=== PATIENT | male | born 1950 | race African-American/Black ===

== ENCOUNTER 2020-11-16 13:17 | Emergency (ER) | payer OTHER ==
[~2020-11-16] VITALS: Ht 190.5 cm; Wt 91.0 kg
[2020-11-16 15:00] LABS: BASOPHILS % 0.9 % (0.0-2.0); EOSINOPHILS % 4.5 % (0.0-5.0); HEMATOCRIT. 39.5 % (42.0-52.0); HEMOGLOBIN. 12.7 g/dL (14.0-18.0); LYMPHOCYTES % 13.8 % (20.0-50.0); MEAN CORPUSCULAR VOLUME 90.3 fL (80.0-94.0); MEAN PLATELET VOLUME 10.2 fl (7.4-10.4); MONOCYTES % 9.3 % (2.0-8.0); NEUTROPHILS % 71.5 % (40.0-76.0); PLATELET 192 x1000/uL (130-400); RED BLOOD CELL COUNT 4.38 mill/uL (4.7-6.1); RED CELL DISTRIBUTION WIDTH 16.7 % (11.6-14.6)
[2020-11-16 15:07] LABS: CHLORIDE 109 mEq/L (98-107)
[2020-11-16] MEDS ORDERED: SODIUM CHLORIDE 0.9% 1,000 ML IV ONE (17:00)
[2020-11-16 19:03] LABS: CLARITY URINE CLEAR (CLEAR); COLOR URINE YELLOW (YELLOW); KETONES URINE TRACE (NEGATIVE); LEUKOCYTE ESTERASE URINE TRACE (NEGATIVE); NITRITE URINE NEGATIVE (NEGATIVE); OCCULT BLOOD URINE NEGATIVE (NEGATIVE); PROTEIN URINE TRACE (NEGATIVE); SPECIFIC GRAVITY URINE 1.015 (1.005-1.030)
[2020-11-16 19:06] VITALS: BP 111/58
== END 2020-11-16 19:48 | disposition home or self-care (01) ==
LOC: ER 13:50
DX: R00.2 Palpitations (principal); I10 Essential (primary) hypertension; F17.290 Nicotine dependence, other tobacco product, uncomplicated; E86.0 Dehydration; N28.9 Disorder of kidney and ureter, unspecified
CPT/HCPCS: 36415; 70450; 71045; 80053; 81003; 83880; 84484; 85025; 93005; 96360; 99285; J7030

== ENCOUNTER 2025-02-02 11:08 | Inpatient (IN) | payer MEDICARE, OTHER ==
[~2025-02-02] VITALS: Ht 188 cm; Wt 109.5 kg
[2025-02-02] VITALS (46 sets, daily range): BP systolic 76–192; BP diastolic 61–149; PULSE 48–99; RESP 11–23; TEMP 36.4736; O2SAT 40–100
[2025-02-02] MEDS ORDERED: NOREPINEPHRINE 8MG/250ML PMX 250 ML IV ONE (11:20)
[2025-02-02] MEDS: NOREPINEPHRINE 8MG/250ML PMX 250 ML IV SCH (11:29)
[2025-02-02] MEDS ORDERED: FENTANYL 2500MCG/250ML PMX 250 ML IV SCH (11:30)
[2025-02-02] MEDS ORDERED: FENTANYL 2500MCG/250ML PMX 250 ML IV PRN (11:30)
[2025-02-02] MEDS: SODIUM CHLORIDE 0.9% 1,000 ML IV ONE (11:48)
[2025-02-02] MEDS: PROPOFOL 10MG/ML 100ML 100 ML IV SCH (11:48)
[2025-02-02 11:51] LABS: BASOPHILS % 0.6 % (0.0-2.0); EOSINOPHILS % 3.6 % (0.0-5.0); HEMATOCRIT. 35.0 % (42.0-52.0); HEMOGLOBIN. 10.7 g/dL (14.0-18.0); LYMPHOCYTES % 55.6 % (20.0-50.0); MEAN PLATELET VOLUME 11.4 fl (7.4-10.4); MONOCYTES % 5.3 % (2.0-8.0); NEUTROPHILS % 34.9 % (40.0-76.0); PLATELET 126 x1000/uL (130-400); RED BLOOD CELL COUNT 3.60 mill/uL (4.7-6.1); RED CELL DISTRIBUTION WIDTH 14.3 % (11.6-14.6)
[2025-02-02 11:54] LABS: BG BASE EXCESS -12.3 mmol/L (-2.0-3.0); BG CARBOXYHEMOGLOBIN 2.1 % (0.5-1.5); BG DEOXYHEMOGLOBIN 0.3 % (0.0-5.0); BG FRACTION INSPIRED OXYGEN 100; BG HCO3 ACT 14.5 mmol/L (21.0-28.0); BG METHEMOGLOBIN 0.4 % (0.5-1.5); BG OXYGEN SATURATION 99.7 % (94.0-98.0); BG OXYHEMOGLOBIN 97.2 % (94.0-98.0); BG PCO2 36.3 mmHg (35.0-48.0); BG PEEP (cmH2O) 5.0 cmH2O; BG PH 7.219 (7.350-7.450); BG PO2 490.4 mmHg (83.0-108.0); BG SAMPLE SITE LEFT RADIAL; BG TIDAL VOLUME(mL) 550.0 mL; BG TOTAL HEMOGLOBIN 11.8 g/dL (13.5-17.5); BG TOTAL RESPIRATORY RATE 21 b/min; BG VENT MODE VENT - AC; BG VENT RATE 20.0 set
[2025-02-02 12:09] LABS: UREA NITROGEN BLOOD 14 mg/dL (9-23)
[2025-02-02 12:10] LABS: CREATININE 1.7 mg/dL (0.6-1.3)
[2025-02-02 12:11] LABS: ASPARTATE AMINOTRANSFERASE 20 IU/L (<34)
[2025-02-02 12:12] LABS: BILIRUBIN DIRECT 0.3 mg/dL (<=3.0)
[2025-02-02 12:13] LABS: BILIRUBIN TOTAL 0.8 mg/dL (0.1-1.0); PROTEIN TOTAL 5.9 g/dL (6.0-8.3)
[2025-02-02 12:22] LABS: INR 1.1
[2025-02-02 12:38] LABS: TROPONIN I HIGH SENSITIVITY 56 ng/L (3.0-53)
[2025-02-02] MEDS: VANCOMYCIN 1G PREMIX 200 ML IV ONE (12:56)
[2025-02-02] MEDS: PIPERACILLIN/TAZO 3.375G/50ML 50 ML IV ONE (12:56)
[2025-02-02] MEDS ORDERED: ACETAMINOPHEN 325MG TABLET PO PRN (13:30)
[2025-02-02] MEDS ORDERED: GUAIFENESIN 200MG/10ML SUGAR FREE UDC PO PRN (13:30)
[2025-02-02] MEDS ORDERED: LORAZEPAM 0.5MG TABLET PO PRN (13:30)
[2025-02-02] MEDS: KCL 10MEQ/50ML PREMIX 50 ML IV ONE (13:30)
[2025-02-02] MEDS ORDERED: VANCOMYCIN 1.5GM/250ML 250 ML IV SCH (14:00)
[2025-02-02 14:27] LABS: TROPONIN I HIGH SENSITIVITY 777 ng/L (3.0-53)
[2025-02-02 14:33] LABS: INFLUENZA TYPE A Presumptive Negative (Pres. Neg.)
[2025-02-02 14:34] LABS: INFLUENZA TYPE B Presumptive Negative (Pres. Neg.); RESPIRATORY SYNCYTIAL VIRUS Not Detected (Not Detectd)
[2025-02-02] MEDS ORDERED: DEXTROSE 50% WATER 50ML SYRINGE IV PRN (14:45)
[2025-02-02 15:48] LABS: TRIGLYCERIDE 142.0 mg/dL (0-150)
[2025-02-02 15:49] LABS: LDL CHOLESTEROL 108.0 mg/dL (5-100)
[2025-02-02] MEDS ORDERED: HEPARIN 25,000 UNITS in DEXT 5% WATER 245 ML IV SCH (16:15)
[2025-02-02] MEDS: BLOOD SUGAR DIAGNOSTIC STRIP TEST SCH (16:30)
[2025-02-02 17:15] LABS: BG BASE EXCESS -5.6 mmol/L (-2.0-3.0); BG CARBOXYHEMOGLOBIN 1.7 % (0.5-1.5); BG DEOXYHEMOGLOBIN 1.1 % (0.0-5.0); BG FRACTION INSPIRED OXYGEN 40; BG HCO3 ACT 19.0 mmol/L (21.0-28.0); BG METHEMOGLOBIN 0.1 % (0.5-1.5); BG OXYGEN SATURATION 98.9 % (94.0-98.0); BG OXYHEMOGLOBIN 97.1 % (94.0-98.0); BG PCO2 34.8 mmHg (35.0-48.0); BG PEEP (cmH2O) 5.0 cmH2O; BG PH 7.355 (7.350-7.450); BG PO2 135.9 mmHg (83.0-108.0); BG SAMPLE SITE RIGHT RADIAL; BG TIDAL VOLUME(mL) 550.0 mL; BG TOTAL HEMOGLOBIN 14.8 g/dL (13.5-17.5); BG VENT MODE VENT - AC; BG VENT RATE 20.0 set
[2025-02-02] MEDS: SODIUM BICARBONATE 8.4% 50MEQ/50ML SYR IV SCH (17:15)
[2025-02-02] MEDS: PIPERACILLIN/TAZO 3.375G/50ML 50 ML IV SCH (17:15)
[2025-02-02] MEDS: HEPARIN 60 UNITS/KG BOLUS IV SCH (17:16)
[2025-02-02] MEDS: DEXT 5%/0.9% NACL 1,000 ML IV SCH (17:19)
[2025-02-02] MEDS: INSULIN LISPRO 100 UNITS/ML SUBCUT SCH (17:46)
[2025-02-02] MEDS: HEPARIN 25,000 UNITS PREMIX 250 ML IV SCH (18:10)
[2025-02-02] MEDS: KCL 20MEQ/100ML PREMIX 100 ML IV NR (18:34)
[2025-02-02] MEDS ORDERED: ATOR40TA70 PO (19:37)
[2025-02-02] MEDS ORDERED: GABA-1180 PO (19:37)
[2025-02-02] MEDS ORDERED: DABI150C PO (19:37)
[2025-02-02] MEDS ORDERED: FURO20TA4 PO (19:37)
[2025-02-02] MEDS ORDERED: BISO5TAB13 PO (19:37)
[2025-02-02] MEDS ORDERED: LISI20TA31 PO (19:37)
[2025-02-02 21:21] LABS: UREA NITROGEN BLOOD 21.0 mg/dL (9-23)
[2025-02-02 21:29] LABS: CREATININE 2.3 mg/dL (0.6-1.3)
[2025-02-02] MEDS: PANTOPRAZOLE SODIUM 40 MG/VIAL IV SCH (21:29)
[2025-02-02] MEDS: ACETAMINOPHEN 650MG SUPP PR PRN (21:29)
[2025-02-02] MEDS: HYDRALAZINE 20MG/ML VIAL IV PRN (22:58)
[2025-02-02] MEDS ORDERED: HEPARIN BOLUS PRN aPTT <30 IV (23:00)
[2025-02-02] MEDS: HEPARIN BOLUS PRN aPTT 30-44 IV (23:52)
[2025-02-03] VITALS (105 sets, daily range): BP systolic 88–171; BP diastolic 63–130; PULSE 63–114; RESP 17–32; TEMP 99.4–100.6; O2SAT 95–100
[2025-02-03] MEDS: ACETAMINOPHEN 650MG/20.3ML UDC NG PRN (03:58)
[2025-02-03 07:17] LABS: HEMATOCRIT. 44.2 % (42.0-52.0); HEMOGLOBIN. 14.3 g/dL (14.0-18.0); MEAN PLATELET VOLUME 10.6 fl (7.4-10.4); PLATELET 173 x1000/uL (130-400); RED BLOOD CELL COUNT 4.74 mill/uL (4.7-6.1); RED CELL DISTRIBUTION WIDTH 14.8 % (11.6-14.6)
[2025-02-03 08:20] LABS: CREATININE 2.9 mg/dL (0.6-1.3); UREA NITROGEN BLOOD 26.0 mg/dL (9-23)
[2025-02-03 09:22] LABS: BG BASE EXCESS -6.2 mmol/L (-2.0-3.0); BG CARBOXYHEMOGLOBIN 1.2 % (0.5-1.5); BG DEOXYHEMOGLOBIN 1.4 % (0.0-5.0); BG FRACTION INSPIRED OXYGEN 60; BG HCO3 ACT 17.1 mmol/L (21.0-28.0); BG METHEMOGLOBIN 0.1 % (0.5-1.5); BG OXYGEN SATURATION 98.6 % (94.0-98.0); BG OXYHEMOGLOBIN 97.3 % (94.0-98.0); BG PCO2 28.7 mmHg (35.0-48.0); BG PEEP (cmH2O) 5.0 cmH2O; BG PH 7.393 (7.350-7.450); BG PO2 110.5 mmHg (83.0-108.0); BG SAMPLE SITE LEFT RADIAL; BG TIDAL VOLUME(mL) 550.0 mL; BG TOTAL HEMOGLOBIN 15.3 g/dL (13.5-17.5); BG VENT MODE VENT - AC; BG VENT RATE 22.0 set
[2025-02-03 11:04] LABS: BAND% 15.0 % (1.0-6.0); LYMPHOCYTES % MANUAL 7.0 % (20.0-50.0); MONOCYTES % MANUAL 11.0 % (2.0-8.0); NEUTROPHILS % MANUAL 67.0 % (45.0-75.0); PLATELET ESTIMATE NORMAL
[2025-02-03 11:07] LABS: CLARITY URINE TURBID (CLEAR); COLOR URINE DARK YELLOW (YELLOW); GLUCOSE URINE TRACE (NEGATIVE); KETONES URINE TRACE (NEGATIVE); LEUKOCYTE ESTERASE URINE TRACE (NEGATIVE); NITRITE URINE NEGATIVE (NEGATIVE); OCCULT BLOOD URINE 1+ (NEGATIVE); PH URINE 5.0 (4.5-8.0); PROTEIN URINE 2+ (NEGATIVE); SPECIFIC GRAVITY URINE 1.022 (1.005-1.030); UROBILINOGEN URINE 1.0 E.U./dL (0.2-1.0)
[2025-02-03 11:44] LABS: AMORPHOUS SEDIMENT URINE 1+ /lpf; SQUAMOUS EPITHELIAL CELL URINE RARE /lpf (RARE/1+)
[2025-02-03 11:45] LABS: BACTERIA URINE 3+; RBC URINE 0-2 /hpf (0-2)
[2025-02-03 11:46] LABS: WBC URINE 0-2 /hpf (0-2)
[2025-02-03 11:53] LABS: *AMPHETAMINES SCREEN URINE NEGATIVE (NEGATIVE); *BARBITURATES SCREEN URINE NEGATIVE (NEGATIVE); *BENZODIAZEPINES SCREEN URINE NEGATIVE (NEGATIVE); *COCAINE SCREEN URINE NEGATIVE (NEGATIVE); METHADONE URINE SCREEN NEGATIVE (NEGATIVE); OPIATES URINE SCREEN NEGATIVE (NEGATIVE); PHENCYCLIDINE URINE SCREEN NEGATIVE (NEGATIVE)
[2025-02-03 11:54] LABS: CANNABINOID URINE SCREEN NEGATIVE (NEGATIVE); ECSTASY MDMA SCREEN URINE NEGATIVE (NEGATIVE)
[2025-02-03] MEDS: ONDANSETRON HCL 4MG/2ML INJ IV PRN (14:55)
[2025-02-03] MEDS ORDERED: SODIUM CHLORIDE 0.9% 500 ML IV SCH (16:10)
[2025-02-03] MEDS: SODIUM CHLORIDE 0.9% 1,000 ML IV SCH (16:18)
[2025-02-03] MEDS ORDERED: NOREPINEPHRINE 8 MG in DEXT 5% WATER 242 ML IV PRN (16:30)
[2025-02-03] MEDS ORDERED: NOREPINEPHRINE 32 MG in DEXTROSE 5% WATER 250 ML IV PRN (16:45)
[2025-02-03 16:48] LABS: SODIUM URINE RANDOM 34.0 mEq/L
[2025-02-03 16:55] LABS: CREATININE URINE RANDOM 139.0 mg/dL; UREA NITROGEN URINE RANDOM 199.0 mg/dL
[2025-02-03] MEDS: AMIODARONE 150MG/100ML D5W 100 ML IV SCH (16:58)
[2025-02-03] MEDS ORDERED: VASOPRESSIN 20 UNIT in SODIUM CHLORIDE 0.9% 99 ML IV PRN (17:00)
[2025-02-03] MEDS: AMIODARONE HCL 900 MG in DEXT 5% WATER 482 ML IV SCH (17:02)
[2025-02-03] MEDS: SODIUM BICARBONATE 100 MEQ in DEXTROSE 5% WATER 900 ML IV SCH (17:03)
[2025-02-03 17:16] LABS: OSMOLALITY URINE 342.0 mOsm/kg (500-850)
[2025-02-03 18:26] LABS: BG BASE EXCESS -4.9 mmol/L (-2.0-3.0); BG CARBOXYHEMOGLOBIN 0.7 % (0.5-1.5); BG DEOXYHEMOGLOBIN 3.7 % (0.0-5.0); BG FRACTION INSPIRED OXYGEN 40; BG HCO3 ACT 18.6 mmol/L (21.0-28.0); BG METHEMOGLOBIN 0.3 % (0.5-1.5); BG OXYGEN SATURATION 96.3 % (94.0-98.0); BG OXYHEMOGLOBIN 95.3 % (94.0-98.0); BG PCO2 30.6 mmHg (35.0-48.0); BG PEEP (cmH2O) 5.0 cmH2O; BG PH 7.402 (7.350-7.450); BG PO2 80.1 mmHg (83.0-108.0); BG SAMPLE SITE RIGHT RADIAL; BG TIDAL VOLUME(mL) 550.0 mL; BG TOTAL HEMOGLOBIN 14.0 g/dL (13.5-17.5); BG VENT MODE VENT - AC; BG VENT RATE 22.0 set
[2025-02-03] MEDS ORDERED: FAMOTIDINE 20MG/2ML VIAL IV SCH (21:00)
[2025-02-03] MEDS: FAMOTIDINE 20MG/2ML VIAL IV SCH (21:18)
[2025-02-03 23:44] LABS: UREA NITROGEN BLOOD 39.0 mg/dL (9-23)
[2025-02-03 23:45] LABS: CREATININE 3.8 mg/dL (0.6-1.3)
[2025-02-04] VITALS (94 sets, daily range): BP systolic 102–169; BP diastolic 57–128; PULSE 62–164; RESP 16–25; TEMP 99.6–100.6; O2SAT 70–100
[2025-02-04 00:03] LABS: TROPONIN I HIGH SENSITIVITY 752 ng/L (3.0-53)
[2025-02-04 05:28] LABS: BASOPHILS % 0.1 % (0.0-2.0); EOSINOPHILS % 0.1 % (0.0-5.0); HEMATOCRIT. 37.5 % (42.0-52.0); HEMOGLOBIN. 12.2 g/dL (14.0-18.0); LYMPHOCYTES % 8.5 % (20.0-50.0); MEAN PLATELET VOLUME 10.9 fl (7.4-10.4); MONOCYTES % 13.6 % (2.0-8.0); NEUTROPHILS % 77.7 % (40.0-76.0); PLATELET 147 x1000/uL (130-400); RED BLOOD CELL COUNT 4.05 mill/uL (4.7-6.1); RED CELL DISTRIBUTION WIDTH 15.0 % (11.6-14.6)
[2025-02-04 05:48] LABS: CREATININE 4.0 mg/dL (0.6-1.3)
[2025-02-04 05:49] LABS: UREA NITROGEN BLOOD 34 mg/dL (9-23)
[2025-02-04 05:51] LABS: PHOSPHORUS 3.5 mg/dL (2.5-4.9)
[2025-02-04 06:08] LABS: TROPONIN I HIGH SENSITIVITY 594 ng/L (3.0-53)
[2025-02-04] MEDS: MAGNESIUM 2 G PREMIX 50 ML IV NR (09:17)
[2025-02-04 09:36] LABS: BG BASE EXCESS -0.9 mmol/L (-2.0-3.0); BG CARBOXYHEMOGLOBIN 1.4 % (0.5-1.5); BG DEOXYHEMOGLOBIN 3.0 % (0.0-5.0); BG FRACTION INSPIRED OXYGEN 40; BG HCO3 ACT 21.7 mmol/L (21.0-28.0); BG METHEMOGLOBIN 0.1 % (0.5-1.5); BG OXYGEN SATURATION 97.0 % (94.0-98.0); BG OXYHEMOGLOBIN 95.5 % (94.0-98.0); BG PCO2 30.3 mmHg (35.0-48.0); BG PEEP (cmH2O) 5.0 cmH2O; BG PH 7.473 (7.350-7.450); BG PO2 85.6 mmHg (83.0-108.0); BG SAMPLE SITE RIGHT BRACHIAL; BG TIDAL VOLUME(mL) 550.0 mL; BG TOTAL HEMOGLOBIN 13.6 g/dL (13.5-17.5); BG VENT MODE VENT - AC; BG VENT RATE 22.0 set
[2025-02-04] MEDS: SODIUM CHLORIDE 0.45% 1,000 ML IV SCH (10:03)
[2025-02-04] MEDS: VANCOMYCIN 750MG PREMIX 150 ML IV SCH (12:33)
[2025-02-04] MEDS ORDERED: METOPROLOL TARTRATE 5MG/5ML VIAL IV SCH (14:00)
[2025-02-04] MEDS ORDERED: METOPROLOL TARTRATE 25MG TABLET PO SCH (14:00)
[2025-02-04] MEDS: PIPERACILLIN/TAZO 3.375G/50ML 50 ML IV SCH (18:00)
[2025-02-04] MEDS: HEPARIN 25,000 UNITS PREMIX 250 ML IV PRN ×2 (18:02→20:24)
[2025-02-04 18:03] LABS: INR 1.1
[2025-02-04] MEDS: HEPARIN 5000 UNITS/ML VIAL IV PRN (18:56)
[2025-02-04] MEDS ORDERED: MIDAZOLAM HCL 100 MG in SODIUM CHLORIDE 0.9% 80 ML IV PRN (21:00)
[2025-02-04] MEDS ORDERED: LEVETIRACETAM 500MG in NACL 100ML PREMIX IV SCH (21:00)
[2025-02-04] MEDS ORDERED: HEPARIN 5000 UNITS/ML VIAL IV PRN (21:00)
[2025-02-04] MEDS ORDERED: AMIODARONE 150MG/100ML D5W 100 ML IV SCH (22:00)
[2025-02-04] MEDS: LEVETIRACETAM 500MG PREMIX 100 ML IV SCH (22:12)
[2025-02-04] MEDS: MIDAZOLAM 100MG/100ML PREMIX IV PRN (22:38)
[2025-02-04 23:17] LABS: HEMATOCRIT. 36.3 % (42.0-52.0); HEMOGLOBIN. 11.5 g/dL (14.0-18.0); MEAN PLATELET VOLUME 11.0 fl (7.4-10.4); PLATELET 133 x1000/uL (130-400); RED BLOOD CELL COUNT 3.87 mill/uL (4.7-6.1); RED CELL DISTRIBUTION WIDTH 14.9 % (11.6-14.6)
[2025-02-04 23:26] LABS: CREATININE 4.0 mg/dL (0.6-1.3)
[2025-02-04 23:27] LABS: UREA NITROGEN BLOOD 32 mg/dL (9-23)
[2025-02-04 23:29] LABS: PHOSPHORUS 4.0 mg/dL (2.5-4.9)
[2025-02-05] VITALS (67 sets, daily range): BP systolic 108–192; BP diastolic 67–148; PULSE 58–156; RESP 11–30; TEMP 37.6; O2SAT 97–100
[2025-02-05 05:26] LABS: PLATELET 130 x1000/uL (130-400); RED BLOOD CELL COUNT 3.78 mill/uL (4.7-6.1); RED CELL DISTRIBUTION WIDTH 14.9 % (11.6-14.6)
[2025-02-05 05:42] LABS: CREATININE 4.0 mg/dL (0.6-1.3)
[2025-02-05 05:45] LABS: PHOSPHORUS 4.0 mg/dL (2.5-4.9); UREA NITROGEN BLOOD 33 mg/dL (9-23)
[2025-02-05] MEDS: IPRATROPIUM/ALBUTEROL 0.5-3(2.5)MG/3ML NEB HHN PRN (05:51)
[2025-02-05 08:42] LABS: BG BASE EXCESS 0.0 mmol/L (-2.0-3.0); BG CARBOXYHEMOGLOBIN 0.2 % (0.5-1.5); BG DEOXYHEMOGLOBIN 1.6 % (0.0-5.0); BG FRACTION INSPIRED OXYGEN 40; BG HCO3 ACT 23.1 mmol/L (21.0-28.0); BG METHEMOGLOBIN 0.3 % (0.5-1.5); BG OXYGEN SATURATION 98.4 % (94.0-98.0); BG OXYHEMOGLOBIN 97.9 % (94.0-98.0); BG PCO2 32.8 mmHg (35.0-48.0); BG PEEP (cmH2O) 5.0 cmH2O; BG PH 7.466 (7.350-7.450); BG PO2 115.9 mmHg (83.0-108.0); BG SAMPLE SITE RIGHT RADIAL; BG TIDAL VOLUME(mL) 550.0 mL; BG TOTAL HEMOGLOBIN 12.5 g/dL (13.5-17.5); BG VENT MODE VENT - AC/PRVC; BG VENT RATE 22.0 set
[2025-02-05] MEDS: DOCUSATE SODIUM 100MG CAPSULE PO PRN (08:43)
[2025-02-05] MEDS: CLONIDINE 0.1MG TABLET PO PRN (08:44)
[2025-02-05] MEDS: LORAZEPAM 2MG/ML UD SYRINGE IV PRN (14:55)
[2025-02-05] MEDS: AMIODARONE 150MG/100ML D5W 100 ML IV NR (14:58)
[2025-02-05 15:05] LABS: BG BASE EXCESS -0.6 mmol/L (-2.0-3.0); BG CARBOXYHEMOGLOBIN 1.1 % (0.5-1.5); BG DEOXYHEMOGLOBIN 2.3 % (0.0-5.0); BG FRACTION INSPIRED OXYGEN 40; BG HCO3 ACT 25.0 mmol/L (21.0-28.0); BG METHEMOGLOBIN 0.0 % (0.5-1.5); BG OXYGEN SATURATION 97.7 % (94.0-98.0); BG OXYHEMOGLOBIN 96.6 % (94.0-98.0); BG PCO2 44.6 mmHg (35.0-48.0); BG PEEP (cmH2O) 5.0 cmH2O; BG PH 7.366 (7.350-7.450); BG PO2 107.5 mmHg (83.0-108.0); BG SAMPLE SITE RIGHT RADIAL; BG TOTAL HEMOGLOBIN 12.1 g/dL (13.5-17.5); BG VENT MODE MASK - CPAP
[2025-02-05] MEDS ORDERED: IPRATROPIUM BROMIDE (0.02%) 0.5MG/2.5ML NEB HHN PRN (16:00)
[2025-02-05 17:09] LABS: BG BASE EXCESS 0.0 mmol/L (-2.0-3.0); BG CARBOXYHEMOGLOBIN 0.8 % (0.5-1.5); BG DEOXYHEMOGLOBIN 3.2 % (0.0-5.0); BG FRACTION INSPIRED OXYGEN 40; BG HCO3 ACT 24.3 mmol/L (21.0-28.0); BG METHEMOGLOBIN 0.1 % (0.5-1.5); BG OXYGEN SATURATION 96.8 % (94.0-98.0); BG OXYHEMOGLOBIN 95.9 % (94.0-98.0); BG PCO2 38.5 mmHg (35.0-48.0); BG PEEP (cmH2O) 5.0 cmH2O; BG PH 7.418 (7.350-7.450); BG PO2 92.2 mmHg (83.0-108.0); BG SAMPLE SITE RIGHT RADIAL; BG TOTAL HEMOGLOBIN 11.8 g/dL (13.5-17.5); BG VENT MODE VENT - CPAP
[2025-02-05] MEDS: SODIUM CHLORIDE 3% FOR INH 4ML NEB INH SCH (18:00)
[2025-02-05] MEDS: METHYLPREDNISOLONE SOD SUCC 40MG/ML (ACT-O-VIAL) IV SCH (18:48)
[2025-02-05] MEDS: ACETAMINOPHEN 325MG TABLET PO PRN (18:48)
[2025-02-05] MEDS: IPRATROPIUM BROMIDE (0.02%) 0.5MG/2.5ML NEB HHN SCH (20:00)
[2025-02-05 21:49] LABS: LYMPHOCYTES % MANUAL 13.0 % (20.0-50.0); MONOCYTES % MANUAL 22.0 % (2.0-8.0); NEUTROPHILS % MANUAL 65.0 % (45.0-75.0)
[2025-02-05 21:50] LABS: PLATELET ESTIMATE NORMAL
[2025-02-05] MEDS: ACETYLCYSTEINE 200MG/ML 20% VIAL 4ML INH SCH (22:00)
[2025-02-06] VITALS (85 sets, daily range): BP systolic 106–195; BP diastolic 69–116; PULSE 52–95; RESP 13–29; TEMP 36.9–37; O2SAT 96–100
[2025-02-06 06:15] LABS: CREATININE 3.4 mg/dL (0.6-1.3)
[2025-02-06 06:16] LABS: UREA NITROGEN BLOOD 44 mg/dL (9-23)
[2025-02-06 06:17] LABS: ASPARTATE AMINOTRANSFERASE 62 IU/L (<34)
[2025-02-06 06:18] LABS: BILIRUBIN TOTAL 1.4 mg/dL (0.1-1.0); PROTEIN TOTAL 6.2 g/dL (6.0-8.3)
[2025-02-06] MEDS: SODIUM CHLORIDE 0.45% 500 ML IV ONE (07:00)
[2025-02-06 08:33] LABS: BASOPHILS % 0.3 % (0.0-2.0); EOSINOPHILS % 0.9 % (0.0-5.0); HEMATOCRIT. 35.1 % (42.0-52.0); HEMOGLOBIN. 11.3 g/dL (14.0-18.0); LYMPHOCYTES % 9.7 % (20.0-50.0); MEAN PLATELET VOLUME 11.6 fl (7.4-10.4); MONOCYTES % 7.9 % (2.0-8.0); NEUTROPHILS % 81.2 % (40.0-76.0); PLATELET 131 x1000/uL (130-400); RED BLOOD CELL COUNT 3.70 mill/uL (4.7-6.1); RED CELL DISTRIBUTION WIDTH 15.1 % (11.6-14.6)
[2025-02-06 09:32] LABS: BG BASE EXCESS 0.1 mmol/L (-2.0-3.0); BG CARBOXYHEMOGLOBIN 0.4 % (0.5-1.5); BG DEOXYHEMOGLOBIN 2.9 % (0.0-5.0); BG FRACTION INSPIRED OXYGEN 40; BG HCO3 ACT 24.0 mmol/L (21.0-28.0); BG METHEMOGLOBIN 0.3 % (0.5-1.5); BG OXYGEN SATURATION 97.1 % (94.0-98.0); BG OXYHEMOGLOBIN 96.4 % (94.0-98.0); BG PCO2 36.8 mmHg (35.0-48.0); BG PEEP (cmH2O) 5.0 cmH2O; BG PH 7.433 (7.350-7.450); BG PO2 97.7 mmHg (83.0-108.0); BG SAMPLE SITE RIGHT RADIAL; BG TIDAL VOLUME(mL) 550.0 mL; BG TOTAL HEMOGLOBIN 12.2 g/dL (13.5-17.5); BG VENT MODE VENT - AC; BG VENT RATE 22.0 set
[2025-02-06] MEDS ORDERED: SODIUM CHLORIDE 0.45% 500 ML IV ONE (10:30)
[2025-02-06] MEDS: AMLODIPINE 10MG TABLET PO SCH (12:36)
[2025-02-06] MEDS: AMIODARONE 200MG TABLET PO SCH (12:37)
[2025-02-06] MEDS: VANCOMYCIN 750MG PREMIX 150 ML IV SCH (12:40)
[2025-02-06] MEDS: HYDRALAZINE HCL 25MG TABLET PO SCH (21:03)
[2025-02-07] VITALS (100 sets, daily range): BP systolic 102–163; BP diastolic 71–101; PULSE 51–93; RESP 10–27; TEMP 37–37.1; O2SAT 96–100
[2025-02-07 05:45] LABS: BASOPHILS % 0.0 % (0.0-2.0); EOSINOPHILS % 0.0 % (0.0-5.0); HEMATOCRIT. 32.7 % (42.0-52.0); HEMOGLOBIN. 10.6 g/dL (14.0-18.0); LYMPHOCYTES % 7.4 % (20.0-50.0); MEAN PLATELET VOLUME 11.0 fl (7.4-10.4); MONOCYTES % 5.8 % (2.0-8.0); NEUTROPHILS % 86.8 % (40.0-76.0); PLATELET 138 x1000/uL (130-400); RED BLOOD CELL COUNT 3.52 mill/uL (4.7-6.1); RED CELL DISTRIBUTION WIDTH 14.7 % (11.6-14.6)
[2025-02-07 05:59] LABS: CREATININE 3.0 mg/dL (0.6-1.3); UREA NITROGEN BLOOD 49 mg/dL (9-23)
[2025-02-07 06:01] LABS: PHOSPHORUS 2.9 mg/dL (2.5-4.9)
[2025-02-07] MEDS: LEVETIRACETAM 1000MG PREMIX 100 ML IV SCH (08:15)
[2025-02-07] MEDS ORDERED: LEVETIRACETAM 1,000MG in NACL 100ML PREMIX IV SCH (09:00)
[2025-02-07 09:42] LABS: BG BASE EXCESS 0.1 mmol/L (-2.0-3.0); BG CARBOXYHEMOGLOBIN 0.8 % (0.5-1.5); BG DEOXYHEMOGLOBIN 4.4 % (0.0-5.0); BG FRACTION INSPIRED OXYGEN 40; BG HCO3 ACT 23.2 mmol/L (21.0-28.0); BG METHEMOGLOBIN 0.1 % (0.5-1.5); BG OXYGEN SATURATION 95.6 % (94.0-98.0); BG OXYHEMOGLOBIN 94.7 % (94.0-98.0); BG PCO2 32.7 mmHg (35.0-48.0); BG PEEP (cmH2O) 5.0 cmH2O; BG PH 7.469 (7.350-7.450); BG PO2 75.6 mmHg (83.0-108.0); BG SAMPLE SITE RIGHT RADIAL; BG TIDAL VOLUME(mL) 550.0 mL; BG TOTAL HEMOGLOBIN 11.5 g/dL (13.5-17.5); BG VENT MODE VENT - AC; BG VENT RATE 22.0 set
[2025-02-07] MEDS: SODIUM CHLORIDE 0.45% 1,000 ML IV SCH (10:22)
[2025-02-07] MEDS: CEFTRIAXONE 1GM/50ML 50 ML IV SCH (13:06)
[2025-02-08] VITALS (92 sets, daily range): BP systolic 112–151; BP diastolic 63–99; PULSE 46–90; RESP 10–24; TEMP 37.0852; O2SAT 94–100
[2025-02-08 06:49] LABS: HEMATOCRIT. 32.0 % (42.0-52.0); HEMOGLOBIN. 10.5 g/dL (14.0-18.0); MEAN PLATELET VOLUME 10.6 fl (7.4-10.4); PLATELET 150 x1000/uL (130-400); RED BLOOD CELL COUNT 3.43 mill/uL (4.7-6.1); RED CELL DISTRIBUTION WIDTH 14.5 % (11.6-14.6)
[2025-02-08 06:52] LABS: CREATININE 2.9 mg/dL (0.6-1.3); UREA NITROGEN BLOOD 73.0 mg/dL (9-23)
[2025-02-08] MEDS ORDERED: ENOXAPARIN 120MG/0.8ML SYR SUBCUT SCH (11:00)
[2025-02-08] MEDS: SODIUM CHLORIDE 0.45% 1,000 ML IV SCH (11:04)
[2025-02-08] MEDS: ENOXAPARIN 120MG/0.8ML SYR SUBCUT SCH (11:04)
[2025-02-08 13:28] LABS: INR 1.1
[2025-02-08 14:18] LABS: BG BASE EXCESS 0.2 mmol/L (-2.0-3.0); BG CARBOXYHEMOGLOBIN 0.1 % (0.5-1.5); BG DEOXYHEMOGLOBIN 3.3 % (0.0-5.0); BG FRACTION INSPIRED OXYGEN 40; BG HCO3 ACT 23.7 mmol/L (21.0-28.0); BG METHEMOGLOBIN 0.3 % (0.5-1.5); BG OXYGEN SATURATION 96.7 % (94.0-98.0); BG OXYHEMOGLOBIN 96.3 % (94.0-98.0); BG PCO2 34.5 mmHg (35.0-48.0); BG PEEP (cmH2O) 5.0 cmH2O; BG PH 7.455 (7.350-7.450); BG PO2 86.0 mmHg (83.0-108.0); BG SAMPLE SITE RIGHT RADIAL; BG TIDAL VOLUME(mL) 500.0 mL; BG TOTAL HEMOGLOBIN 11.3 g/dL (13.5-17.5); BG TOTAL RESPIRATORY RATE 14 b/min; BG VENT MODE VENT - SIMV; BG VENT RATE 12.0 set
[2025-02-08] MEDS: METHYLPREDNISOLONE SOD SUCC 40MG/ML (ACT-O-VIAL) IV SCH (17:09)
[2025-02-09] VITALS (70 sets, daily range): BP systolic 112–157; BP diastolic 72–103; PULSE 47–88; RESP 10–24; TEMP 97.7–98.6; O2SAT 0–100
[2025-02-09 06:58] LABS: LYMPHOCYTES % MANUAL 7.0 % (20.0-50.0); MONOCYTES % MANUAL 9.0 % (2.0-8.0); NEUTROPHILS % MANUAL 84.0 % (45.0-75.0); PLATELET ESTIMATE NORMAL
[2025-02-09 07:41] LABS: HEMATOCRIT. 31.1 % (42.0-52.0); HEMOGLOBIN. 10.0 g/dL (14.0-18.0); MEAN PLATELET VOLUME 10.6 fl (7.4-10.4); PLATELET 158 x1000/uL (130-400); RED BLOOD CELL COUNT 3.33 mill/uL (4.7-6.1); RED CELL DISTRIBUTION WIDTH 14.8 % (11.6-14.6)
[2025-02-09 08:21] LABS: CREATININE 2.8 mg/dL (0.6-1.3); UREA NITROGEN BLOOD 75 mg/dL (9-23)
[2025-02-09 08:23] LABS: PHOSPHORUS 4.4 mg/dL (2.5-4.9)
[2025-02-09 10:26] LABS: BG BASE EXCESS -1.4 mmol/L (-2.0-3.0); BG CARBOXYHEMOGLOBIN 0.3 % (0.5-1.5); BG DEOXYHEMOGLOBIN 2.5 % (0.0-5.0); BG FRACTION INSPIRED OXYGEN 40; BG HCO3 ACT 22.8 mmol/L (21.0-28.0); BG METHEMOGLOBIN 0.3 % (0.5-1.5); BG OXYGEN SATURATION 97.5 % (94.0-98.0); BG OXYHEMOGLOBIN 96.9 % (94.0-98.0); BG PCO2 36.4 mmHg (35.0-48.0); BG PEEP (cmH2O) 5.0 cmH2O; BG PH 7.415 (7.350-7.450); BG PO2 95.3 mmHg (83.0-108.0); BG SAMPLE SITE RIGHT RADIAL; BG TIDAL VOLUME(mL) 500.0 mL; BG TOTAL HEMOGLOBIN 11.4 g/dL (13.5-17.5); BG VENT MODE VENT - SIMV; BG VENT RATE 12.0 set
[2025-02-09] MEDS: ENOXAPARIN 120MG/0.8ML SYR SUBCUT SCH (11:58)
[2025-02-09] MEDS: SODIUM CHLORIDE 0.45% 1,000 ML IV SCH (11:59)
[2025-02-09 17:34] LABS: LYMPHOCYTES % MANUAL 8.0 % (20.0-50.0); MONOCYTES % MANUAL 9.0 % (2.0-8.0); NEUTROPHILS % MANUAL 83.0 % (45.0-75.0); PLATELET ESTIMATE NORMAL
[2025-02-10] VITALS (92 sets, daily range): BP systolic 116–167; BP diastolic 73–103; PULSE 55–78; RESP 11–21; TEMP 97.7–99.4; O2SAT 97–100
[2025-02-10 05:31] LABS: PLATELET 156 x1000/uL (130-400); RED BLOOD CELL COUNT 3.45 mill/uL (4.7-6.1); RED CELL DISTRIBUTION WIDTH 14.8 % (11.6-14.6)
[2025-02-10 05:45] LABS: CREATININE 2.6 mg/dL (0.6-1.3)
[2025-02-10 05:47] LABS: UREA NITROGEN BLOOD 52 mg/dL (9-23)
[2025-02-10 05:49] LABS: PHOSPHORUS 4.6 mg/dL (2.5-4.9)
[2025-02-10 10:39] LABS: BG BASE EXCESS -2.2 mmol/L (-2.0-3.0); BG CARBOXYHEMOGLOBIN 1.2 % (0.5-1.5); BG DEOXYHEMOGLOBIN 4.0 % (0.0-5.0); BG FRACTION INSPIRED OXYGEN 40; BG HCO3 ACT 21.6 mmol/L (21.0-28.0); BG METHEMOGLOBIN 0.3 % (0.5-1.5); BG OXYGEN SATURATION 95.9 % (94.0-98.0); BG OXYHEMOGLOBIN 94.5 % (94.0-98.0); BG PCO2 34.0 mmHg (35.0-48.0); BG PEEP (cmH2O) 5.0 cmH2O; BG PH 7.421 (7.350-7.450); BG PO2 82.9 mmHg (83.0-108.0); BG SAMPLE SITE RIGHT RADIAL; BG TIDAL VOLUME(mL) 500.0 mL; BG TOTAL HEMOGLOBIN 12.0 g/dL (13.5-17.5); BG VENT MODE VENT - SIMV; BG VENT RATE 12.0 set
[2025-02-10] MEDS: CHLORHEXIDINE GLUCONATE 4% EXTERNAL USE TOP SCH (21:05)
[2025-02-10] MEDS: DEXT 5%/0.45% NACL 1000ML 1,000 ML IV SCH (23:47)
[2025-02-11] VITALS (95 sets, daily range): BP systolic 127–188; BP diastolic 77–110; PULSE 61–85; RESP 12–34; TEMP 36.4–36.6; O2SAT 92–100
[2025-02-11 05:29] LABS: HEMATOCRIT. 34.5 % (42.0-52.0); HEMOGLOBIN. 10.9 g/dL (14.0-18.0); RED BLOOD CELL COUNT 3.61 mill/uL (4.7-6.1); RED CELL DISTRIBUTION WIDTH 15.0 % (11.6-14.6)
[2025-02-11 05:36] LABS: CREATININE 2.6 mg/dL (0.6-1.3); UREA NITROGEN BLOOD 57 mg/dL (9-23)
[2025-02-11 05:38] LABS: PHOSPHORUS 5.1 mg/dL (2.5-4.9)
[2025-02-11] MEDS: CHLORHEXIDINE GLUCONATE 4% EXTERNAL USE TOP SCH (05:41)
[2025-02-11] MEDS: CALCIUM GLUCONATE 100MG/ML 10ML VIAL IV SCH (10:10)
[2025-02-11] MEDS ORDERED: ROCURONIUM BROMIDE 10MG/ML VIAL 5ML IV ONE ×2 (10:10→10:48)
[2025-02-11 11:38] LABS: PLATELET 175 x1000/uL (130-400)
[2025-02-11 11:39] LABS: BAND% 2.0 % (1.0-6.0); LYMPHOCYTES % MANUAL 7.0 % (20.0-50.0); MONOCYTES % MANUAL 6.0 % (2.0-8.0); NEUTROPHILS % MANUAL 85.0 % (45.0-75.0)
[2025-02-11 11:40] LABS: PLATELET ESTIMATE NORMAL
[2025-02-11] MEDS: MORPHINE SULFATE 2 MG/ML INJ (NOT FOR IM USE) IV SCH (13:26)
[2025-02-11] MEDS: SODIUM CHLORIDE 0.45% 1,000 ML IV SCH (16:27)
[2025-02-11] MEDS: AMIODARONE 200MG TABLET PO SCH (17:15)
[2025-02-11 19:34] LABS: T4 FREE 1.18 ng/dL (0.89-1.76)
[2025-02-12] VITALS (55 sets, daily range): BP systolic 126–160; BP diastolic 76–96; PULSE 56–88; RESP 11–40; TEMP 36.6–37.1; O2SAT 97–100
[2025-02-12 06:53] LABS: HEMATOCRIT. 31.9 % (42.0-52.0); HEMOGLOBIN. 10.3 g/dL (14.0-18.0); MEAN PLATELET VOLUME 10.3 fl (7.4-10.4); PLATELET 228 x1000/uL (130-400); RED BLOOD CELL COUNT 3.35 mill/uL (4.7-6.1); RED CELL DISTRIBUTION WIDTH 15.1 % (11.6-14.6)
[2025-02-12 06:54] LABS: UREA NITROGEN BLOOD 54 mg/dL (9-23)
[2025-02-12 06:55] LABS: CREATININE 2.5 mg/dL (0.6-1.3)
[2025-02-12 06:56] LABS: PROTEIN TOTAL 5.9 g/dL (6.0-8.3)
[2025-02-12 06:57] LABS: ASPARTATE AMINOTRANSFERASE 42 IU/L (<34)
[2025-02-12 06:58] LABS: BILIRUBIN DIRECT 0.3 mg/dL (<=3.0); BILIRUBIN TOTAL 0.7 mg/dL (0.1-1.0); PHOSPHORUS 4.7 mg/dL (2.5-4.9)
[2025-02-12] MEDS ORDERED: ALBUTEROL (0.083%) 2.5MG/3ML NEB HHN NR ×2 (07:30→16:00)
[2025-02-12] MEDS: CALCIUM CHLORIDE 1GM/10ML SYR IV NR ×2 (08:09→17:25)
[2025-02-12] MEDS: DEXTROSE 50% WATER 50ML SYRINGE IV NR ×2 (08:10→17:26)
[2025-02-12] MEDS: INSULIN REGULAR (HUMULIN R) 1000UNITS/10ML VIAL IV NR ×2 (08:12→17:28)
[2025-02-12] MEDS: SODIUM CHLORIDE 0.45% 500 ML IV NR (09:13)
[2025-02-12 09:19] LABS: BG BASE EXCESS -2.9 mmol/L (-2.0-3.0); BG CARBOXYHEMOGLOBIN 0.3 % (0.5-1.5); BG DEOXYHEMOGLOBIN 1.7 % (0.0-5.0); BG FRACTION INSPIRED OXYGEN 40; BG HCO3 ACT 21.5 mmol/L (21.0-28.0); BG METHEMOGLOBIN 0.3 % (0.5-1.5); BG OXYGEN SATURATION 98.3 % (94.0-98.0); BG OXYHEMOGLOBIN 97.7 % (94.0-98.0); BG PCO2 36.2 mmHg (35.0-48.0); BG PEEP (cmH2O) 5.0 cmH2O; BG PH 7.392 (7.350-7.450); BG PO2 114.0 mmHg (83.0-108.0); BG SAMPLE SITE RIGHT RADIAL; BG TIDAL VOLUME(mL) 500.0 mL; BG TOTAL HEMOGLOBIN 10.9 g/dL (13.5-17.5); BG TOTAL RESPIRATORY RATE 16 b/min; BG VENT MODE VENT - AC; BG VENT RATE 14.0 set
[2025-02-12 12:32] LABS: CREATININE 2.2 mg/dL (0.6-1.3); UREA NITROGEN BLOOD 62.0 mg/dL (9-23)
[2025-02-12] MEDS ORDERED: AMLO10TA80 PO (16:14)
[2025-02-12] MEDS ORDERED: AMI2 PO (16:14)
[2025-02-12] MEDS: SODIUM BICARBONATE 8.4% 50MEQ/50ML SYR IV NR (17:14)
[2025-02-12] MEDS: FUROSEMIDE 40MG/4ML VIAL IV NR (17:16)
[2025-02-12 18:54] LABS: BAND% 4.0 % (1.0-6.0); LYMPHOCYTES % MANUAL 10.0 % (20.0-50.0); METAMYELOCYTES % 3.0 % (0-0); MONOCYTES % MANUAL 8.0 % (2.0-8.0); MYELOCYTES % 3.0 % (0-0); NEUTROPHILS % MANUAL 72.0 % (45.0-75.0); PLATELET ESTIMATE NORMAL
[2025-02-12 19:29] LABS: CREATININE 2.2 mg/dL (0.6-1.3); UREA NITROGEN BLOOD 47.0 mg/dL (9-23)
[2025-02-13] MEDS ORDERED: METHYLPREDNISOLONE SOD SUCC 40MG/ML (ACT-O-VIAL) IV SCH (09:00)
[2025-02-13] MEDS ORDERED: CEFAZOLIN 1000MG PREMIX 50 ML IV PRN (15:30)
== END 2025-02-12 23:00 | disposition short-term general hospital (02) | DRG 4 ==
LOC: ER 11:08 → MICUNO 12:28 → ENRESERV 14:02 → 5EST 02-12 13:25
PROVIDERS: ADMIT Internal Medicine; ATTEND Internal Medicine
PROC: 5A1955Z Respiratory Ventilation, Greater than 96 Consecutive Hours (ICD-10-PCS; 2025-02-02)
PROC: 0BH17EZ Insertion of Endotracheal Airway into Trachea, Via Natural or Artificial Opening (ICD-10-PCS; 2025-02-02)
PROC: 4A00X4Z Measurement of Central Nervous Electrical Activity, External Approach (ICD-10-PCS; 2025-02-04)
PROC: 0B21XEZ Change Endotracheal Airway in Trachea, External Approach (ICD-10-PCS; 2025-02-05)
PROC: 0B110F4 Bypass Trachea to Cutaneous with Tracheostomy Device, Open Approach (ICD-10-PCS; principal; 2025-02-11)
DX: A41.9 Sepsis, unspecified organism (principal); I21.A1 Myocardial infarction type 2; J96.01 Acute respiratory failure with hypoxia; N17.0 Acute kidney failure with tubular necrosis; I49.01 Ventricular fibrillation; J69.0 Pneumonitis due to inhalation of food and vomit; R57.0 Cardiogenic shock; I46.9 Cardiac arrest, cause unspecified; G93.1 Anoxic brain damage, not elsewhere classified; M62.82 Rhabdomyolysis; G25.3 Myoclonus; I48.0 Paroxysmal atrial fibrillation; Z99.11 Dependence on respirator [ventilator] status; D69.6 Thrombocytopenia, unspecified; B96.89 Other specified bacterial agents as the cause of diseases classified elsewhere; I13.0 Hypertensive heart and chronic kidney disease with heart failure and stage 1 through stage 4 chronic kidney disease, or unspecified chronic kidney disease; D53.9 Nutritional anemia, unspecified; N18.30 Chronic kidney disease, stage 3 unspecified; E11.22 Type 2 diabetes mellitus with diabetic chronic kidney disease; R56.9 Unspecified convulsions; E87.20 Acidosis, unspecified; I47.10 Supraventricular tachycardia, unspecified; E87.0 Hyperosmolality and hypernatremia; I50.22 Chronic systolic (congestive) heart failure; Z20.822 Contact with and (suspected) exposure to COVID-19; E87.6 Hypokalemia; R19.7 Diarrhea, unspecified; E83.51 Hypocalcemia; E87.5 Hyperkalemia; R16.2 Hepatomegaly with splenomegaly, not elsewhere classified; E86.0 Dehydration; R33.9 Retention of urine, unspecified; E83.39 Other disorders of phosphorus metabolism; E83.42 Hypomagnesemia; I25.10 Atherosclerotic heart disease of native coronary artery without angina pectoris; R13.12 Dysphagia, oropharyngeal phase; F41.9 Anxiety disorder, unspecified; R74.01 Elevation of levels of liver transaminase levels; D13.5 Benign neoplasm of extrahepatic bile ducts; F17.210 Nicotine dependence, cigarettes, uncomplicated; Z80.9 Family history of malignant neoplasm, unspecified; Z82.49 Family history of ischemic heart disease and other diseases of the circulatory system; Z86.73 Personal history of transient ischemic attack (TIA), and cerebral infarction without residual deficits
CPT/HCPCS: 31500; 31720; 36415; 36600; 71045; 74018; 76700; 76770; 80048; 80053; 80061; 80076; 80202; 80305; 80320; 81003; 82010; 82140; 82375; 82550; 82570; 82805; 82962; 83605; 83735; 83880; 83930; 83935; 84100; 84145; 84300; 84439; 84443; 84484; 84540; 85025; 85027; 85379; 86850; 86900; 87070; 87420; 87426; 87493; 87804; 93005; 93306; 93970; 94002; 94003; 94070; 94640; 94664; 95816; 99291; A4606; J0282; J0360; J0612; J0696; J1308; J1644; J1650; J1815; J1938; J1953; J2060; J2250; J2270; J2405; J2470; J2543; J2704; J2919; J3010; J3373; J3475; J3480; J3490; J7030; J7042; J7060; J7070; J7608; G0480